=== PATIENT | female | born 1955 | race Caucasian/White ===

== ENCOUNTER 2022-09-01 15:14 | Emergency (ER) | payer MEDICARE, OTHER ==
[2022-09-01 15:53] VITALS: TEMP 97.6
[2022-09-01 16:32] LABS: Appearance,Urine Clear (Clear); Bacteria,Urine Rare /hpf; Bilirubin,Urine Negative (Negative); Blood,Urine Negative (Negative); Color,Urine Light Yellow; Glucose,Urine (UA) Negative (Negative); Ketones,Urine Negative (Negative); Leukocyte Esterase,Urine Large (Negative); Mucus,Urine Rare /hpf; Nitrite,Urine Negative (Negative); PH, Urine 5.5 (5.0-8.0); Protein,Urine Negative (Negative); Specific Gravity,Urine 1.007 (1.001-1.035); Squamous Epithelial Cell,Urine 1 /hpf (0-4); Urobilinogen,Urine <2.0 mg/dL (<2.0); WBC,Urine 8 /hpf (0-5)
--- NOTE | 2022-09-01 17:55 | ED ---
Abdominal Pain HPI - General Source: patient Mode of arrival: ambulatory Limitations: no limitations - History of Present Illness MD Complaint: abdominal pain, flank pain <Sheri Soria - Last Filed: 09/01/22 17:52> <Lamar Garcia - Last Filed: 09/01/22 21:53> - General Chief Complaint: Abdominal Pain Stated Complaint: back and lower abd pain Time Seen by Provider: 09/01/22 17:50 - History of Present Illness Initial Comments: This is a 67-year-old female who presents to the emergency department with bilateral flank pain. She reports burning with urination and blood in her urine over the last several days. States that she has pain radiating from the bilateral flanks into her abdomen. Denies any nausea, vomiting, fevers, or chills. She is concerned that she may have a UTI or kidney stone. Denies any history of kidney stones. (Sheri Soria) I reviewed the above HPI. During my evaluation patient denies dysuria. Patient has pain in her middle back on both sides. Pain unchanged with movement. She denies injury. She has history of sciatica for several months otherwise no new numbness or tingling. No leg weakness. No saddle anesthesia. Patient reports bandlike pain in her lower abdomen and upper abdomen. No diarrhea or co nstipation. No bloody stools. She has history of hysterectomy. She denies chest pain and shortness of breath. Denies alcohol use. (Lamar Garcia) - Related Data Previous Rx's Medication Instructions Recorded Ibuprofen [Motrin] 800 mg PO Q8HR PRN #30 tab 09/01/22 Sulfamethox-Tmp 800-160Mg [Bactrim 1 each PO Q12HR #10 tab 09/01/22 Ds] Allergies Allergy/AdvReac Type Severity Reaction Status Date / Time Penicillins Allergy Swelling Verified 09/01/22 15:54 wool Allergy Rash/Hives Verified 09/01/22 15:54 Review of Systems ROS Other: All systems not noted in ROS Statement are negative. <Sheri Soria - Last Filed: 09/01/22 17:52> ROS Other: All systems not noted in ROS Statement are negative. <Lamar Garcia - Last Filed: 09/01/22 21:53> ROS Statement: Those systems with pertinent positive or pertinent negative responses have been documented in the HPI. Past Medical History Past Medical History: Cancer, Myocardial Infarction (MA) History of Any Multi-Drug Resistant Organisms: None Reported Additional Past Surgical History / Comment(s): MASTECTOMY CARDIAC ABLATION Past Psychological History: No Psychological Hx Reported Smoking Status: Former smoker Past Alcohol Use History: None Reported Past Drug Use History: None Reported <Sheri Soria - Last Filed: 09/01/22 17:52> General Exam Limitations: no limitations <Sheri Soria - Last Filed: 09/01/22 17:52> General appearance: alert, in no apparent distress Head exam: Present: atraumatic, normocephalic, normal inspection Eye exam: Present: normal appearance, PERRL, EOMI. Absent: scleral icterus, conjunctival injection, periorbital swelling Respiratory exam: Present: normal lung sounds bilaterally. Absent: respiratory distress, wheezes, rales, rhonchi, stridor Cardiovascular Exam: Present: regular rate, normal rhythm, normal heart sounds. Absent: systolic murmur, diastolic murmur, rubs, gallop, clicks GI/Abdominal exam: Present: soft, normal bowel sounds, hernia (epigastric region soft no everlying erythema ). Absent: distended, tenderness, guarding, rebound, rigid Back exam: Present: normal inspection, full ROM, paraspinal tenderness (thoracic). Absent: vertebral tenderness Neurological exam: Present: alert, oriented X3, CN II-XII intact Psychiatric exam: Present: normal affect, normal mood Skin exam: Present: warm, dry, intact, normal color. Absent: rash <Lamar Garcia - Last Filed: 09/01/22 21:53> - General Exam Comments Initial Comments: Visual Physical Exam Vital signs reviewed General: Well-appearing, nontoxic, no acute distress. Head: Normocephalic, atraumatic Eyes: PERRLA, EOMI ENT: Airway patent Chest: Nonlabored breathing Skin: No visual rash, normal skin tone Neuro: Alert and oriented 3 Musculoskeletal: No gross abnormalities (Sheri Soria) Course Vital Signs 09/01/22 15:47 Temperature 97.6 F Pulse Rate 67 Respiratory 20 Rate Blood Pressure 137/87 O2 Sat by Pulse 99 Oximetry Medical Decision Making - Lab Data Result diagrams: 09/01/22 19:34 09/01/22 19:34 <Lamar Garcia - Last Filed: 09/01/22 21:53> - Medical Decision Making Was pt. sent in by a medical professional or institution (PRADEEP Duarte, STUDENT LIAISON OFFICER, urgent care, hospital, or custodial...) When possible be specific @ -[No] Did you speak to anyone other than the patient for history (EMS, parent, family, police, friend...)? What history was obtained from this source @ -[No] Did you review nursing and triage notes (agree or disagree)? Why? @ -[I reviewed and agree with nursing and triage notes] Were old charts reviewed (outside hosp., previous admission, EMS record, old EKG, old radiological studies, urgent care reports/EKG's, custodial records)? Report findings @ -[No old charts were reviewed] Differential Diagnosis (chest pain, altered mental status, abdominal pain women, abdominal pain men, vaginal bleeding, weakness, fever, dyspnea, syncope, headache, dizziness, GI bleed, back pain, seizure, CVA, palpatations, mental health)? @ -Differential Abdominal Pain Women: Appendicitis, Cholecystitis, diverticulosis, ischemic bowel, pancreatitis, hepatitis, UTI, gastroenteritis, AAA, incarcerated hernia, bowel obstruction, constipation, inflammatory bowel, hepatitis, peptic ulcer disease, splenic infarction, perforated viscus, vulvitis, ovarian torsion, PID, kidney stone, placenta abruption, this is not meant to be an all-inclusive list EKG interpreted by me (3pts min.). @ -[As above] X-rays interpreted by me (1pt min.). @ -[None done] CT interpreted by me (1pt min.). @ -Yes, CT of the abdomen and pelvis with contrast is negative for acute process U/S interpreted by me (1pt. min.). @ -[None done] What testing was considered but not performed or refused? (CT, X-rays, U/S, labs)? Why? @ -[None] What meds were considered but not given or refused? Why? @ -[None] Did you discuss the management of the patient with other professionals (professionals i.e. , PRADEEP, STUDENT LIAISON OFFICER, lab, RT, psych nurse, psychiatric social worker supervisor, radio producer, teacher, compliance review officer, caser shoe parts)? Give summary @ -[No] Was smoking cessation discussed for >3mins.? @ -[No] Was critical care preformed (if so, how long)? @ -[No] Were there social determinants of health that impacted care today? How? (Homelessness, low income, unemployed, alcoholism, drug addiction, transportation, low edu. Level, literacy, decrease access to med. care, prison, rehab)? @ -[No] Was there de-escalation of care discussed even if they declined (Discuss DNR or withdrawal of care, Hospice)? DNR status @ -[No] What co-morbidities impacted this encounter? (DM, HTN, Smoking, COPD, CAD, Cancer, CVA, ARF, Chemo, Hep., AIDS, mental health diagnosis, sleep apnea, morbid obesity)? @ -[None] Was patient admitted / discharged? Hospital course, mention meds given and route, prescriptions, significant lab abnormalities, going to OR and other pertinent info. @ -Patient presenting with lower abdominal pain and back pain. Abdomen soft and nontender. Laboratory studies obtained. There is no leukocytosis. Urinalysis is concerning for infection. CT of the abdomen and pelvis with contrast is negative for acute process. Results discussed with patient. With lower abdominal pain and back pain I will treat for possible urinary tract infection. Patient has no fever, no vomiting, no white count. She will be discharged home with return parameters. Undiagnosed new problem with uncertain prognosis? @ -[No] Drug Therapy requiring intensive monitoring for toxicity (Heparin, Nitro, Insulin, Cardizem)? @ -[No] Were any procedures done? @ -[No] Diagnosis/symptom? @ -abd pain, back pain Acute, or Chronic, or Acute on Chronic? @ -acute Uncomplicated (without systemic symptoms) or Complicated (systemic symptoms)? @ -uncomplicated Side effects of treatment? @ -[No] Exacerbation, Progression, or Severe Exacerbation? @ -[No] Poses a threat to life or bodily function? How? (Chest pain, USA, MA, pneumonia, PE, COPD, DKA, ARF, appy, cholecystitis, CVA, Diverticulitis, Homicidal, Suicidal, threat to staff... and all critical care pts) @ -[No] Dr. Nunez is my attending (Lamar Garcia) - Lab Data Lab Results 09/01/22 09/01/22 09/01/22 Range/Units 16:00 19:34 19:34 WBC 8.4 (3.8-10.6) k/uL RBC 4.67 (3.80-5.40) m/uL Hgb 13.6 (11.4-16.0) gm/dL Hct 40.3 (34.0-46.0) % MCV 86.2 (80.0-100.0) fL MCH 29.1 (25.0-35.0) pg MCHC 33.7 (31.0-37.0) g/dL RDW 14.8 (11.5-15.5) % Plt Count 285 (150-450) k/uL MPV 8.4 Neutrophils % 61 % Lymphocytes % 29 % Monocytes % 5 % Eosinophils % 3 % Basophils % 1 % Neutrophils # 5.1 (1.3-7.7) k/uL Lymphocytes # 2.5 (1.0-4.8) k/uL Monocytes # 0.4 (0-1.0) k/uL Eosinophils # 0.3 (0-0.7) k/uL Basophils # 0.1 (0-0.2) k/uL Sodium 136 L (137-145) mmol/L Potassium 3.3 L (3.5-5.1) mmol/L Chloride 98 (98-107) mmol/L Carbon Dioxide 30 (22-30) mmol/L Anion Gap 8 mmol/L BUN 14 (7-17) mg/dL Creatinine 0.83 (0.52-1.04) mg/dL Est GFR (CKD-EPI)AfAm 84 (>60 ml/min/1.73 sqM) Est GFR (CKD-EPI)NonAf 73 (>60 ml/min/1.73 sqM) Glucose 101 H (74-99) mg/dL Calcium 9.1 (8.4-10.2) mg/dL Total Bilirubin 0.5 (0.2-1.3) mg/dL AST 27 (14-36) U/L ALT 26 (4-34) U/L Alkaline Phosphatase 132 H (38-126) U/L Total Protein 6.4 (6.3-8.2) g/dL Albumin 3.9 (3.5-5.0) g/dL Lipase 83 (23-300) U/L Urine Color Light Yellow Urine Appearance Clear (Clear) Urine pH 5.5 (5.0-8.0) Ur Specific [place] 1.007 (1.001-1.035) Urine Protein Negative (Negative) Urine Glucose (UA) Negative (Negative) Urine Ketones Negative (Negative) Urine Blood Negative (Negative) Urine Nitrite Negative (Negative) Urine Bilirubin Negative (Negative) Urine Urobilinogen <2.0 (<2.0) mg/dL Ur Leukocyte Esterase Large H (Negative) Urine WBC 8 H (0-5) /hpf Ur Squamous Epith Cells 1 (0-4) /hpf Urine Bacteria Rare H (None) /hpf Urine Mucus Rare H (None) /hpf Disposition <Sheri Soria - Last Filed: 09/01/22 17:52> Is patient prescribed a controlled substance at d/c from ED?: No Time of Disposition: 21:33 <Lamar Garcia - Last Filed: 09/01/22 21:53> Clinical Impression: Abdominal pain, Back pain Disposition: HOME SELF-CARE Condition: Good Instructions (If sedation given, give patient instructions): Abdominal Pain (ED), Urinary Tract Infection in Older Adults (ED) Additional Instructions: Take medication as directed. Follow-up with primary care provider in one to 2 days. Return to the emergency department if you experience new, concerning, or worsening symptoms Prescriptions: Sulfamethox-Tmp 800-160Mg [Bactrim Ds] 1 each PO Q12HR #10 tab Ibuprofen [Motrin] 800 mg PO Q8HR PRN #30 tab PRN Reason: Pain Referrals: Stephenie Nuenz DO [Primary Care Provider] - 1-2 days
[2022-09-01] MEDS ORDERED: SODIUM CHLORIDE 0.9% 1,000 ML IV STA (19:03)
[2022-09-01] MEDS ORDERED: LIDOCAINE 5% PATCH TOPICAL STA (19:31)
[2022-09-01] MEDS ORDERED: HYDROmorphone 0.5 MG/0.5 ML SYRINGE IVP STA (19:32)
[2022-09-01 19:49] LABS: Basophils # (A) 0.1 k/uL (0-0.2); Basophils % (A) 1 %; Eosinophils # (A) 0.3 k/uL (0-0.7); Eosinophils % (A) 3 %; HCT 40.3 % (34.0-46.0); HGB 13.6 gm/dL (11.4-16.0); Lymphocytes # (A) 2.5 k/uL (1.0-4.8); Lymphocytes % (A) 29 %; MCH 29.1 pg (25.0-35.0); MCHC 33.7 g/dL (31.0-37.0); MCV 86.2 fL (80.0-100.0); Mean Platelet Volume 8.4; Monocytes # (A) 0.4 k/uL (0-1.0); Monocytes % (A) 5 %; Neutrophils # (A) 5.1 k/uL (1.3-7.7); Neutrophils % (A) 61 %; Platelet Count 285 k/uL (150-450); RBC 4.67 m/uL (3.80-5.40); RDW 14.8 % (11.5-15.5); WBC 8.4 k/uL (3.8-10.6)
[2022-09-01 20:28] LABS: Potassium 3.3 mmol/L (3.5-5.1)
[2022-09-01 20:29] LABS: Albumin 3.9 g/dL (3.5-5.0); Calcium 9.1 mg/dL (8.4-10.2); Total Bilirubin 0.5 mg/dL (0.2-1.3); Total Protein 6.4 g/dL (6.3-8.2)
[2022-09-01] MEDS ORDERED: POTASSIUM CHLORIDE ER 20 MEQ TAB.ER PO STA (21:01)
--- NOTE | 2022-09-01 21:24 | CT ---
EXAMINATION TYPE: CT abdomen pelvis w con DATE OF EXAM: 09/01/2022 COMPARISON: None HISTORY: Bilateral flank pain, Hematuria. CT DLP: 2133.8 mGycm Automated exposure control for dose reduction was used. CONTRAST: Performed with IV Contrast, patient injected with 100cc mL of Isovue 300. Images obtained from the diaphragm to the floor the pelvis with the IV contrast. Lung bases are clear of consolidation. No pleural effusion. Heart size is fairly normal. No pericardi al effusion. Liver spleen and stomach pancreas appear intact. The bile ducts are not dilated. There a re clips from cholecystectomy. There is no adrenal mass. Kidneys show normal size and contour. No hydronephrosis. Ureters are not di lated. No retroperitoneal adenopathy. The bladder distends smoothly. No inguinal hernia. No free flui d in the pelvis. No pelvic mass. There is no mesenteric edema. No ascites or free air. No sign of a bowel obstruction. There is multip le sigmoid diverticula. No diverticulitis. The lumbar vertebrae have normal alignment. Posterior elements are intact. No compression fracture. Facet joints are intact. Bony pelvis is intact. The hip joints are intact. Delayed images show normal renal excretion. There is 2 cm cortical cyst anterior right kidney. IMPRESSION: No renal stone or obstruction. Appendix not seen.
[2022-09-01] MEDS ORDERED: SULFAMETHOX-TMP 800-160MG 1 EACH TAB PO STA (21:31)
[2022-09-01 22:00] VITALS: BP 109/84; PULSE 74; RESP 18
== END 2022-09-01 22:12 | disposition home or self-care (01) ==
LOC: EC 15:14
DX: R10.13 Epigastric pain (principal); M54.9 Dorsalgia, unspecified; I25.2 Old myocardial infarction; Z87.891 Personal history of nicotine dependence; Z88.0 Allergy status to penicillin; Z91.048 Other nonmedicinal substance allergy status
CPT/HCPCS: 36415; 80053; 83690; 85025; 81001; 74177; 99284; 96374; J1170; Q9967

== ENCOUNTER → 2023-04-09 | Outpatient (CLI) | payer MEDICARE, OTHER ==
[2023-04-09 21:48] LABS: HCT 44.7 % (37.2-46.3); HGB 13.8 d/dL (12.0-15.0); MCH 27.8 pg (27.0-32.0); MCHC 30.9 d/dL (32.0-37.0); MCV 89.9 FL (80.0-97.0); Mean Platelet Volume 11.8 FL (9.5-12.2); NRBC Per 100 WBC 0 X 10*3/uL (0.00-0.01); Platelet Count 316 X 10*3/uL (140-440); RBC 4.97 X 10*6/uL (4.10-5.20); RDW 15.2 % (11.5-14.5); WBC 8.96 X 10*3/uL (4.50-10.00)
[2023-04-09 22:53] LABS: Blood Urea Nitrogen 19.2 mg/dL (9.0-27.0); Carbon Dioxide 29.5 mmol/L (21.6-31.8); Chloride 100 mmol/L (96-109); Potassium 3.8 mmol/L (3.5-5.5); Sodium 141 mmol/L (135-145)
== END | disposition home or self-care (01) ==
LOC: LABWHC1 12:26
PROVIDERS: ATTEND Internal Medicine Interventional Cardiology
DX: Z01.812 Encounter for preprocedural laboratory examination (principal); I25.10 Atherosclerotic heart disease of native coronary artery without angina pectoris
CPT/HCPCS: 36415; 80051; 82565; 84520; 85027

== ENCOUNTER → 2023-04-17 | Day surgery (SDC) | payer MEDICARE, OTHER ==
[2023-04-12 11:34] VITALS: BMI 36.3
[~2023-04-17] MED LIST: ACETAMINOPHEN TAB 325 MG TAB ONE; ALPRAZolam 0.25 MG TAB PO PRN; ALPRAZolam 0.5 MG TAB PO PRN; ASPIRIN 325 MG TAB PO STA; HEPARIN SODIUM 1,000 UN/ML (10ML VL) IV ONE; HEPARIN SODIUM 1,000 UN/ML (10ML VL) ONE; HEPARIN SODIUM,PORCINE (1 ML) 2,500 UNIT in SODIUM CHLORIDE 0.9% 250 ML IRRIGATION PRN; HEPARIN SODIUM,PORCINE 10,000 UNIT in SODIUM CHLORIDE 0.9% 1,000 ML IRRIGATION PRN; HYDROmorphone 1 MG/ML 1 ML SYRINGE IVP ONE; HYDROmorphone 1 MG/ML 1 ML SYRINGE ONE; IOPAMIDOL-370 100ML BTL INJ ONE; LIDOCAINE 1% INJ 10MG/ML (30 ML VIAL-PF) SQ ONE; MIDAZOLAM 2 MG/2 ML VIAL IVP ONE; NITROGLYCERIN SL TABS 0.4 MG TAB SUBLINGUAL PRN; RX INFO: IV CONTRAST WAS GIVEN 1 EACH MISC MISCELLANE PRN; SODIUM CHLORIDE 0.9% 1,000 ML IV SCH; SODIUM CHLORIDE 0.9% 1,000 ML in EMPTY BAG 1 BAG IV SCH; VERAPAMIL 2.5 MG/ML 2 ML AMP ONE; VERAPAMIL SYRINGE (5 MG/10 ML) INTRAARTER ONE; diphenhydrAMINE 50 MG/ML 1 ML VIAL IVP STA; diphenhydrAMINE 50 MG/ML 1 ML VIAL ONE; fentaNYL (PF) 50 MCG/ML 2 ML AMP IVP ONE; fentaNYL (PF) 50 MCG/ML 2 ML AMP ONE
[2023-04-17 07:34] VITALS: TEMP 97.5
--- NOTE | 2023-04-17 09:43 | P.PCN ---
Date of Procedure: 04/17/23 Operative Findings: CARDIAC CATHETERIZATION PERFORMING PHYSICIAN: Jason Kaba MD, RPVI PROCEDURE PERFORMED: 1. Selective right and left coronary angiogram 2. Left heart catheterization 3. Ultrasound-guided access of the right radial artery INDICATION: This is a 67-year-old female patient with hypertension and dyslipidemia and paroxysmal atrial fibrillation was seen in the office recently for chest discomfort. She underwent myocardial perfusion imaging stress test and that came in to be abnormal. In the light of that a heart catheterization was advised because she continues to be symptomatic COMPLICATION: None APPROACH: Right radial artery LEVEL OF SEDATION: Moderate with a sedation length of 40 minutes PROCEDURE DESCRIPTION: After obtaining an informed consent, the patient was brought to cardiac director labor standards. Local anesthesia was performed using lidocaine subcutaneously. The right radial artery was cannulated using Seldinger technique, the guidewire passed easily, following that we advanced a 5-Yoruba sheath dilator assembly, the wire and dilator were removed and sheath was flushed. Following that, 2 mg of verapamil along with 5000 unit heparin were given. Selective right and left coronary angiogram using a 6-Yoruba JR4 and JL 3.5 catheters. Following that we did left heart catheterization using 6-Yoruba pigtail catheter. The procedure was completed there was no complication. SELECTIVE CORONARY ANGIOGRAM: The right coronary artery: Large caliber vessel and a dominant vessel. The RCA distally is occluded. It fills by ipsilateral and contralateral collaterals. Left main: Is angiographically normal. Bifurcates into an ulcer excellent LAD The left circumflex: Large caliber vessel none dominant vessel. The proximal LCx is angiographically normal. Gives rises into 1 OM1 which appears to be angiographically normal. The mid LCx after that has an intermediate lesion appeared to be in the range of 40%. Gives rises into 1.2 which appears to be angiographically normal. The circumflex distally becomes small caliber vessel and gives rises into the third obtuse marginal branch which is a small caliber vessel. The left anterior descending artery: The proximal LAD appeared to have mild disease only. The mid and distal LAD appears to have taed-oa-yxscpftx disease only. The LAD gives rises into a diagonal branch which appears to be normal. HEMODYNAMICS: The LVEDP was about 12 mmHg was no significant gradient across aortic valve CONCLUSION: 1. Occluded/subtotally occluded distal RCA 2. Intermediate disease involving the left circumflex coronary artery POSTPROCEDURE MANAGEMENT: We had extremely difficulties engaging the right and left coronary system because of the right subclavian is extremely tortuous. At this point I would advise medical treatment only. Reportedly reach the amount of contrast allowed. I would advise medical treatment at this point and if the patient remains symptomatic consider PCI of the right coronary artery and FFR of the left circumflex coronary artery
[2023-04-17 11:02] VITALS: RESP 16
[2023-04-17 16:57] VITALS: BP 128/69; PULSE 92
== END ==
LOC: CATHCVL 06:15
PROVIDERS: ATTEND Internal Medicine Interventional Cardiology
DX: I48.0 Paroxysmal atrial fibrillation (principal); I10 Essential (primary) hypertension; E78.5 Hyperlipidemia, unspecified; I25.10 Atherosclerotic heart disease of native coronary artery without angina pectoris; J44.9 Chronic obstructive pulmonary disease, unspecified; Z86.79 Personal history of other diseases of the circulatory system; Z87.891 Personal history of nicotine dependence; Z88.0 Allergy status to penicillin; Z79.899 Other long term (current) drug therapy
CPT/HCPCS: 93458; 76937; C1769 ×2; C1887 ×2; C1894; C1751; J2250; J1200; J2001; J3010; J1644; J1170; Q9967

== ENCOUNTER → 2023-08-31 | Outpatient (CLI) | payer MEDICARE, OTHER ==
[2023-08-31 19:19] LABS: Basophils # (A) 0.06 X 10*3/uL (0.00-0.10); Basophils % (A) 0.7 %; Eosinophils # (A) 0.44 X 10*3/uL (0.04-0.35); Eosinophils % (A) 4.9 %; HCT 45.1 % (37.2-46.3); HGB 14.5 g/dL (12.0-15.0); Lymphocytes # (A) 2.52 X 10*3/uL (0.90-5.00); Lymphocytes % (A) 27.8 %; MCH 28.7 pg (27.0-32.0); MCHC 32.2 g/dL (32.0-37.0); MCV 89.1 FL (80.0-97.0); Mean Platelet Volume 11.6 FL (9.5-12.2); Monocytes # (A) 0.74 X 10*3/uL (0.20-1.00); Monocytes % (A) 8.2 %; NRBC Per 100 WBC 0 X 10*3/uL (0.00-0.01); Neutrophils # (A) 5.27 X 10*3/uL (1.80-7.70); Neutrophils % (A) 58.1 %; Platelet Count 349 X 10*3/uL (140-440); RBC 5.06 X 10*6/uL (4.10-5.20); RDW 14.2 % (11.5-14.5); WBC 9.06 X 10*3/uL (4.50-10.00)
[2023-08-31 19:36] LABS: Blood Urea Nitrogen 19.4 mg/dL (9.0-27.0); Carbon Dioxide 27.8 mmol/L (21.6-31.8); Chloride 97 mmol/L (96-109); Potassium 3.9 mmol/L (3.5-5.5); Sodium 140 mmol/L (135-145)
== END | disposition home or self-care (01) ==
LOC: LABPAT 13:41
PROVIDERS: ATTEND Internal Medicine Interventional Cardiology
DX: I25.10 Atherosclerotic heart disease of native coronary artery without angina pectoris (principal); Z01.812 Encounter for preprocedural laboratory examination
CPT/HCPCS: 80051; 82565; 84520; 85025

== ENCOUNTER 2023-09-05 10:45 | Day surgery (SDC) | payer MEDICARE, OTHER ==
[~2023-09-05 10:45] MED LIST changes: -ACETAMINOPHEN TAB 325 MG TAB ONE; -ASPIRIN 325 MG TAB PO STA; -HEPARIN SODIUM 1,000 UN/ML (10ML VL) IV ONE; -HEPARIN SODIUM 1,000 UN/ML (10ML VL) ONE; -HEPARIN SODIUM,PORCINE (1 ML) 2,500 UNIT in SODIUM CHLORIDE 0.9% 250 ML IRRIGATION PRN; -HEPARIN SODIUM,PORCINE 10,000 UNIT in SODIUM CHLORIDE 0.9% 1,000 ML IRRIGATION PRN; -HYDROmorphone 1 MG/ML 1 ML SYRINGE IVP ONE; -HYDROmorphone 1 MG/ML 1 ML SYRINGE ONE; -IOPAMIDOL-370 100ML BTL INJ ONE; -LIDOCAINE 1% INJ 10MG/ML (30 ML VIAL-PF) SQ ONE; -MIDAZOLAM 2 MG/2 ML VIAL IVP ONE; -RX INFO: IV CONTRAST WAS GIVEN 1 EACH MISC MISCELLANE PRN; -SODIUM CHLORIDE 0.9% 1,000 ML IV SCH; -SODIUM CHLORIDE 0.9% 1,000 ML in EMPTY BAG 1 BAG IV SCH; -VERAPAMIL 2.5 MG/ML 2 ML AMP ONE; -VERAPAMIL SYRINGE (5 MG/10 ML) INTRAARTER ONE; -diphenhydrAMINE 50 MG/ML 1 ML VIAL IVP STA; -diphenhydrAMINE 50 MG/ML 1 ML VIAL ONE; -fentaNYL (PF) 50 MCG/ML 2 ML AMP IVP ONE; -fentaNYL (PF) 50 MCG/ML 2 ML AMP ONE
[2023-09-05] MEDS: SODIUM CHLORIDE 0.9% 1,000 ML IV ONE (11:00)
[2023-09-05 11:17] VITALS: TEMP 97.8
[2023-09-05] MEDS: MIDAZOLAM 2 MG/2 ML VIAL IVP ONE ×2 (11:30)
[2023-09-05] MEDS: LIDOCAINE 1% INJ 10MG/ML (20 ML MDV) SQ ONE (11:34)
[2023-09-05] MEDS: IOPAMIDOL-370 100ML BTL INJ ONE (11:57)
--- NOTE | 2023-09-05 12:05 | P.PCN ---
Date of Procedure: 09/05/23 Operative Findings: CARDIAC CATHETERIZATION PERFORMING PHYSICIAN: Jason Kaba MD, RPVI PROCEDURE PERFORMED: 1. Selective right and left coronary angiogram 2. Left heart catheterization 3. Ultrasound-guided access of the right common femoral artery and right common femoral artery angiogram INDICATION: Angina COMPLICATION: None APPROACH: Right common femoral artery LEVEL OF SEDATION: Moderate with sedation in length of 20 minutes PROCEDURE DESCRIPTION: After obtaining an informed consent, the patient was brought to cardiac catheter builder. Local anesthesia was performed using lidocaine subcutaneously. The right common femoral artery was cannulated using micropuncture technique under ultrasound guidance and micropuncture wire passed easily then I placed a 6 Cypriot 23 cm at the right common femoral artery. Selective right and left coronary angiogram using a 6-Cypriot JR4 and JL catheters. Following that we did left heart catheterization using 6-Cypriot pigtail catheter. The procedure was completed there was no complication. SELECTIVE CORONARY ANGIOGRAM: The right coronary artery: Large-caliber vessel and a dominant vessel. The RCA is chronically occluded and short segment in the distal portion. Left main: Large-caliber vessel with mild disease only. The left circumflex: Large caliber vessel nondominant vessel. The LCx has mild disease in the midportion. Gives rise into the first and second obtuse marginal branches and the third obtuse marginal branches and all appear to be angiographically normal The left anterior descending artery: Large caliber vessel. The LAD has mild disease only. The LAD gives rise into the diagonal branches and they appear to be angiographically normal HEMODYNAMICS: The LVEDP was 12 mmHg with no significant gradient across aortic valve CONCLUSION: 1. 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 Normal left-sided filling pressure POSTPROCEDURE MANAGEMENT: Start the patient on anti-ischemic medications. Consider PCI of the RCA if the patient remains symptomatic in spite of being on more than 2 anti-ischemic medications
[2023-09-05] MEDS ORDERED: RX INFO: IV CONTRAST WAS GIVEN 1 EACH MISC MISCELLANE PRN (12:21)
[2023-09-05] MEDS: ASPIRIN 325 MG TAB PO STA (18:58)
[2023-09-05] MEDS: SODIUM CHLORIDE 0.9% 1,000 ML in EMPTY BAG 1 BAG IV SCH (18:58)
[2023-09-05 20:05] VITALS: BP 108/76; PULSE 75; RESP 18
[2023-09-05] MEDS ORDERED: RANOLAZINE 500 MG TAB.ER.12H PO SCH (21:00)
[2023-09-06] MEDS ORDERED: ISOSORBIDE MONONITRATE ER 30 MG TAB.ER.24H PO SCH (09:00)
== END 2023-09-05 19:54 | disposition home or self-care (01) ==
LOC: CATHCVL 10:45 → 6NMEDSUR 11:54 → CATHCVL 19:54
PROVIDERS: ATTEND Internal Medicine Interventional Cardiology
DX: I25.119 Atherosclerotic heart disease of native coronary artery with unspecified angina pectoris (principal); I25.82 Chronic total occlusion of coronary artery; I48.0 Paroxysmal atrial fibrillation; I10 Essential (primary) hypertension; E78.5 Hyperlipidemia, unspecified; J44.9 Chronic obstructive pulmonary disease, unspecified; Z87.891 Personal history of nicotine dependence; Z88.0 Allergy status to penicillin; Z88.8 Allergy status to other drugs, medicaments and biological substances; Z86.79 Personal history of other diseases of the circulatory system; Z79.899 Other long term (current) drug therapy
CPT/HCPCS: 93458; 76937; 99152; J2250; J2001; Q9967

== ENCOUNTER → 2023-12-26 | Outpatient (CLI) | payer MEDICARE, OTHER ==
--- NOTE | 2023-12-26 15:07 | MR ---
EXAMINATION TYPE: MR lumbar spine wo con DATE OF EXAM: 12/26/2023 COMPARISON: None HISTORY: Center Back Pain that travels down both thighs x10+ years TECHNIQUE: Multiplanar, multisequence images of the lumbar spine were acquired without IV contrast. L1-L2: Normal disc appearance without desiccation. No herniation, protrusion or disc bulging. No ca nal stenosis is present. Foramina are patent bilaterally. L2-L3: Normal disc appearance without desiccation. No herniation, protrusion or disc bulging. No ca nal stenosis is present. Foramina are patent bilaterally. L3-L4: Mild decreased signal and loss of height. Mild posterior disc bulge without herniation. No tristan dence of central stenosis foraminal encroachment. Mild facet joint arthropathy. L4-L5: Mild decreased signal and loss of height. Mild posterior disc bulge without herniation. No tristan dence of central stenosis foraminal encroachment. Mild facet joint arthropathy. L5-S1: Normal disc appearance without desiccation. No herniation, protrusion or disc bulging. No ca nal stenosis is present. Foramina are patent bilaterally. Lumbar segments are intact. No paraspinal masses are identified. Conus medullaris has a normal appe arance. IMPRESSION: Mild degenerative disc disease and posterior disc bulge without herniation or central stenosis.
== END | disposition home or self-care (01) ==
LOC: RADMRIMAIN 12:49
PROVIDERS: ATTEND Orthopaedic Surgery
DX: M51.16 Intervertebral disc disorders with radiculopathy, lumbar region (principal); M47.816 Spondylosis without myelopathy or radiculopathy, lumbar region
CPT/HCPCS: 72148

== ENCOUNTER → 2024-03-05 | Outpatient (CLI) | payer MEDICARE, OTHER ==
--- NOTE | 2024-03-05 13:22 | MM ---
Reason for Exam: Clinical finding. Indicated Problems: Lump or thickening of the right side (size 50) for 1 Week(s). Patient History: Menarche at age 7. First Full-Term at age 21. Left ovary removed at age 48. Right ovary removed at age 48. Hysterectomy at age 48. Postmenopausal. Patient has history of breast feeding. Breast cancer, left, age 35. Previous chest radiation therapy at age 37. Patient used Tamoxifen for 10 years. 10/16/1990, Malignant Excisional Biopsy on the left side. Maternal aunt had breast cancer, age 52. Maternal aunt had ovarian cancer, age 57. Mother had ovarian cancer, age 78. Prior Study Comparison: No prior studies available for comparison. Tissue Density: The breasts are heterogeneously dense, which may obscure small masses. Findings: Analyzed By CAD. Postoperative lumpectomy changes left breast. Dystrophic calcifications seen in left breast. Left breast is diminutive relative to the right breast. At the site of clinical concern right breast is no distinct mass seen however ultrasound correlation advised. No suspicious right-sided calcifications. Overall Assessment: Incomplete: need additional imaging evaluation, BI-RAD 0 Management: Diagnostic Breast Ultrasound of the right breast. . Results were given to the patient verbally at the time of exam. Patient should continue monthly self-breast exams. A clinical breast exam by your physician is recommended on an annual basis. This exam should not preclude additional follow-up of suspicious palpable abnormalities. Note on Juliette scores and lifetime risk: 1. A Juliette score greater than 3% is considered moderate risk. If this is the case, consider specialist referral to assess eligibility for a risk reducing agent. 2. If overall lifetime risk for the development of breast cancer is 20% or higher, the patient may qualify for future screening with alternating mammogram and breast MRI. [facility], , 03/05/2024 1:19 PM. Electronically signed and approved by: Francisco Dunlap M.D. Radiologis
--- NOTE | 2024-03-05 13:40 | USB ---
Reason for Exam: Clinical finding. Patient History: Menarche at age 7. First Full-Term at age 21. Left ovary removed at age 48. Right ovary removed at age 48. Hysterectomy at age 48. Postmenopausal. Patient has history of breast feeding. Breast cancer, left, age 35. Previous chest radiation therapy at age 37. Patient used Tamoxifen for 10 years. 10/16/1990, Malignant Excisional Biopsy on the left side. Maternal aunt had breast cancer, age 52. Maternal aunt had ovarian cancer, age 57. Mother had ovarian cancer, age 78. Technique: Method: Targeted. Findings: The area of palpable concern of the right breast, the axilla of the right breast and the retroareolar of the right breast were scanned. No solid or cystic masses are identified. Manage clinically with regards to clinically palpable abnormality. Overall Assessment: Negative, BI-RAD 1 Management: Diagnostic Mammogram of both breasts in 1 year. A clinical breast exam by your physician is recommended on an annual basis and results should be correlated with mammographic findings. This exam should not preclude additional follow-up of suspicious palpable abnormalities. Results were given to the patient verbally at the time of exam. [facility], , 03/05/2024 1:37 PM. Electronically signed and approved by: Francisco Dunlap M.D. Radiologis
== END | disposition home or self-care (01) ==
LOC: RADMAMWWP 12:41
PROVIDERS: ATTEND Family Medicine
DX: Z85.3 Personal history of malignant neoplasm of breast
CPT/HCPCS: 77062; 77066

== ENCOUNTER → 2024-03-24 | Outpatient (CLI) | payer MEDICARE, OTHER ==
[2024-03-24 19:09] LABS: ALT 11 U/L (8-44); AST 19 U/L (13-35); Chol/HDL Ratio 2.95 Ratio; LDL Cholesterol,Calculated 45.1 mg/dL (0.0-131.0)
== END | disposition home or self-care (01) ==
LOC: LABWHC1 10:31
PROVIDERS: ATTEND Internal Medicine Interventional Cardiology
DX: E78.2 Mixed hyperlipidemia (principal)
CPT/HCPCS: 36415; 80061; 84450; 84460

== ENCOUNTER → 2024-08-09 | Outpatient (CLI) | payer MEDICARE, OTHER ==
--- NOTE | 2024-08-09 14:33 | MR ---
EXAMINATION TYPE: MR brain wo/w con DATE OF EXAM: 08/09/2024 2:17 PM COMPARISON: CT head study dated 07/17/2024. CLINICAL INDICATION: Female, 69 years old with history of G93.89 DISORDER OF BRAIN; [facility], abnormal CT, had Code Coag and Fall on thinners 07-17-24 TECHNIQUE: Multi planar, multi sequence imaging was performed through the brain including: T1, T2, In version recovery, susceptibility weighted imaging and gradient echo imaging and Diffusion weighted im aging. The patient was then given intravenous contrast and multi planar, T1 fat-saturation images wer e obtained. IV Contrast: 9 mL Gadobutrol FINDINGS: The hays-white junctions, ventricular system, basal cisterns appear unremarkable. Diffusion-weighted imaging shows no evidence of restricted diffusion to suggest acute/subacute infarct. Intracranial ar terial flow voids are maintained. Midline structures show no abnormality. Scattered foci of high T2 s ignal intensity are seen within the periventricular white matter. The susceptibility weighted images do not reveal any evidence for micro-hemorrhage. After administration of gadolinium, there is a dural -based extra-axial right frontal convexity circumscribed mass measuring 1.8 x 1.9 x 1.9 cm (series 16 6, image 137). The bone marrow signal is within normal limits. Paranasal sinuses and mastoid air cells: No significant paranasal sinus disease. Visualized orbits: Orbital contents are intact. IMPRESSION: 1. Extra-axial right frontal convexity enhancing mass measuring 1.9 cm demonstrating features most c ompatible with a meningioma. 2. Nonspecific white matter changes, likely secondary to chronic small vessel ischemic disease. [facility], , 08/09/2024 2:31 PM
== END | disposition home or self-care (01) ==
LOC: RADMRIMAIN 13:24
PROVIDERS: ATTEND Family Medicine
DX: G93.89 Other specified disorders of brain (principal); R90.82 White matter disease, unspecified
CPT/HCPCS: 70553; A9585

== ENCOUNTER 2024-11-24 09:12 | Day surgery (SDC) | payer MEDICARE, OTHER ==
[2024-11-20 15:36] VITALS: BMI 30.5
[2024-11-24] MEDS: ASPIRIN 325 MG TAB PO STA (10:12)
[2024-11-24] MEDS: SODIUM CHLORIDE 0.9% 1,000 ML in EMPTY BAG 1 BAG IV SCH (10:12)
[2024-11-24] MEDS: IV FLUID CONTINUATION 1,000 ML IV ONE (10:16)
[2024-11-24 10:42] LABS: Glucose,Whole Blood 86 mg/dL (70-110)
[2024-11-24 10:45] VITALS: RESP 16
[2024-11-24 10:57] LABS: Basophils # (A) 0.03 10*3/uL (0.00-0.10); Basophils % (A) 0.5 %; Eosinophils % (A) 3.3 %; HCT 41.4 % (37.2-46.3); Lymphocytes # (A) 1.81 10*3/uL (0.90-5.00); MCH 31.1 pg (27.0-32.0); MCHC 33.8 g/dL (32.0-37.0); Monocytes % (A) 8.3 %; Neutrophils # (A) 3.48 10*3/uL (1.80-7.70); Neutrophils % (A) 57.7 %; Platelet Count 255 10*3/uL (140-440); RDW 13.2 % (11.5-14.5); WBC 6.03 10*3/uL (4.50-10.00)
[2024-11-24 10:59] LABS: African American GFR (CKD) 58 (>60 ml/min/1.73 sqM); Anion Gap 7 mmol/L; Blood Urea Nitrogen 20 mg/dL (7-17); Calcium 10.4 mg/dL (8.4-10.2); Carbon Dioxide 31 mmol/L (22-30); Chloride 100 mmol/L (98-107); Glucose 87 mg/dL (74-99); Non-African American GFR(CKD) 50 (>60 ml/min/1.73 sqM); Potassium 3.8 mmol/L (3.5-5.1); Sodium 138 mmol/L (137-145)
[2024-11-24 11:40] LABS: RBC Morphology Normal
[2024-11-24] MEDS: HEPARIN SODIUM,PORCINE 10,000 UNIT in SODIUM CHLORIDE 0.9% 1,000 ML IRRIGATION PRN (12:22)
[2024-11-24] MEDS: HEPARIN SODIUM,PORCINE (1 ML) 2,500 UNIT in SODIUM CHLORIDE 0.9% 250 ML IRRIGATION PRN (12:22)
[2024-11-24] MEDS: LIDOCAINE 1% INJ 10MG/ML (20 ML MDV) SQ ONE (12:38)
[2024-11-24] MEDS: MIDAZOLAM 2 MG/2 ML VIAL IVP ONE (12:38)
[2024-11-24] MEDS: fentaNYL (PF) 50 MCG/1 ML VIAL IVP ONE (12:38)
[2024-11-24] MEDS: IOPAMIDOL-370 100ML BTL INTRATHECA ONE (12:58)
[2024-11-24] MEDS ORDERED: RX INFO: IV CONTRAST WAS GIVEN 1 EACH MISC MISCELLANE PRN (13:05)
--- NOTE | 2024-11-24 13:10 | P.PCN ---
Date of Procedure: 11/24/24 Operative Findings: CARDIAC CATHETERIZATION PERFORMING PHYSICIAN: Jason Kaba MD, RPVI PROCEDURE PERFORMED: 1. Selective right and left coronary angiogram 2. Left heart catheterization 3. Ultrasound-guided access of the right common femoral artery and selective right common femoral artery angiogram INDICATION: Chest discomfort concerning for angina COMPLICATION: None APPROACH: Right common femoral artery LEVEL OF SEDATION: Moderate with sedation in length of 20 minutes PROCEDURE DESCRIPTION: After obtaining an informed consent, the patient was brought to cardiac laboratory administrative director. Local anesthesia was performed using lidocaine subcutaneously. The right common femoral artery was cannulated using Seldinger technique, the guidewire passed easily, following that we advanced a 6 [place] sheath dilator assembly, the wire and dilator were removed and sheath was flushed. Selective right and left coronary angiogram using a 6-[place] JR4 and JL catheters. Following that we did left heart catheterization using 6-[place] pigtail catheter. The procedure was completed there was no complication. SELECTIVE CORONARY ANGIOGRAM: The right coronary artery: Large caliber vessel and the dominant vessel and chronically occluded and short segment distally with ipsilateral and contralateral collateral Left main: Calcified with mild disease only The left circumflex: Large caliber vessel nondominant vessel. The LCx has no evidence of high-grade stenosis and gives rise into multiple obtuse marginal branches appear to be normal The left anterior descending artery: Large caliber vessel with no evidence of high-grade stenosis HEMODYNAMICS: The LVEDP was 20 mmHg with no significant gradient across aortic valve CONCLUSION: 1. MANAGER NIGHT of the RCA with short segment distally 2. Mild disease involving the left coronary system 3. Elevated left-sided filling pressure POSTPROCEDURE MANAGEMENT: Medical treatment
[2024-11-24] MEDS ORDERED: ALBUTEROL NEBULIZED 2.5 MG/3 ML INHALATION PRN (16:58)
[2024-11-24] MEDS ORDERED: MECLIZINE 12.5 MG TAB PO PRN (16:58)
[2024-11-24] MEDS ORDERED: CYCLOBENZAPRINE 10 MG TAB PO PRN (16:58)
[2024-11-24] MEDS: ATORVASTATIN 80 MG TAB PO STA (17:41)
[2024-11-24] MEDS: SODIUM CHLORIDE 0.9% 1,000 ML IV SCH (17:45)
[2024-11-24] MEDS: ISOSORBIDE MONONITRATE ER 30 MG TAB.ER.24H PO SCH (18:23)
[2024-11-24] MEDS: SYMBICORT 160-4.5 MCG INHALER INHALATION SCH (18:49)
[2024-11-24 20:01] VITALS: BP 104/68; PULSE 62; TEMP 97.7
[2024-11-24] MEDS ORDERED: RANOLAZINE 500 MG TAB.ER.12H PO SCH (21:00)
[2024-11-24] MEDS ORDERED: ATORVASTATIN 80 MG TAB PO SCH (21:00)
[2024-11-24] MEDS ORDERED: METOPROLOL SUCCINATE (ER) 50 MG TAB.ER.24H PO SCH (21:00)
[2024-11-24] MEDS ORDERED: MONTELUKAST 10 MG TAB PO SCH (21:00)
[2024-11-24] MEDS ORDERED: POTASSIUM CHLORIDE ER 20 MEQ TAB.ER PO SCH (21:00)
[2024-11-24] MEDS ORDERED: PANTOPRAZOLE 40 MG TABLET PO SCH (21:00)
[2024-11-24] MEDS ORDERED: LORATADINE 10 MG TAB PO SCH (21:00)
== END 2024-11-24 20:05 | disposition home or self-care (01) ==
LOC: CATHCVL 09:12 → 6NMEDSUR 12:58 → CATHCVL 20:05
PROVIDERS: ATTEND Internal Medicine Interventional Cardiology
DX: I25.10 Atherosclerotic heart disease of native coronary artery without angina pectoris (principal); I48.0 Paroxysmal atrial fibrillation; I25.82 Chronic total occlusion of coronary artery; I73.9 Peripheral vascular disease, unspecified; J44.9 Chronic obstructive pulmonary disease, unspecified; I10 Essential (primary) hypertension; E78.5 Hyperlipidemia, unspecified; Z88.0 Allergy status to penicillin; Z88.5 Allergy status to narcotic agent; Z86.79 Personal history of other diseases of the circulatory system; Z87.891 Personal history of nicotine dependence; Z79.02 Long term (current) use of antithrombotics/antiplatelets; Z79.899 Other long term (current) drug therapy
CPT/HCPCS: 93458; 80048; 85025; 99152; C1769 ×2; C1894; J2250; J1644 ×2; J2003; Q9967; J3010